=== PATIENT | female | born 1955 | race Caucasian/White ===

== ENCOUNTER 2017-06-19 17:08 | Observation (INO) | payer BC, OTHER ==
[~2017-06-19] VITALS: Ht 172.7 cm; Wt 63.7 kg
[~2017-06-19 17:08] MED LIST: CYCL5TAB PO; DIAZ2 PO; ESTR1.25 PO; FLUO-1 PO; [UNRECOGNIZED DRUG - OTHER]
[2017-06-19 17:10] VITALS: BP 143/96; PULSE 118; RESP 16; TEMP 99.1; O2SAT 96
[2017-06-19] MEDS ORDERED: LISI-515 PO (17:42)
[2017-06-19] MEDS ORDERED: MAXA10TA2 (17:42)
[2017-06-19] MEDS ORDERED: FLUO-1 PO (17:42)
[2017-06-19] MEDS ORDERED: DIAZ5 PO (17:42)
[2017-06-19] MEDS ORDERED: PROC2.5C RECTAL (17:42)
[2017-06-19] MEDS ORDERED: AMLO5TAB2 PO (17:45)
--- NOTE | 2017-06-19 18:05 | PD ---
HPI Chief Complaint: Respiratory Symptoms Time Seen by Provider: 17:38 Travel History International Travel<30 days: No Contact w/Intl Traveler<30days: No Traveled to known affect area: No History of Present Illness HPI 61yo F with PMH of breast CA s/p chemo last 05/22/17 was sent her from urgent care because CXR showed small pleural effusion. Pt has been feeling intermittent sob for 2 weeks as well as increased coughing. Said sob occurs when she walks and she has wheezing in the morning. Oncologist is from [place] and said her breast cancer has dissipated and she is done with chemo and getting ready for radiation therapy. Denies any fever, chest pain, vomiting, abdominal pain, focal weakness. PFSH Past Medical History Anxiety: Yes Cancer: Yes (MELANOMA Breast) Cardiovascular Problems: Yes (htn on meds) Chemotherapy: Yes (3 weeks ago) Diminished Hearing: No Herniated Disk: Yes (IN NECK) Hypertension: Yes Implanted Vascular Access Dvce: Yes Migraines: Yes Tetanus Vaccination: Unknown Influenza Vaccination: No ?: Not Menopausal: Yes Dilation and Curettage (D&C): Yes Past Surgical History Genitourinary Surgery: Yes (UTERINE FIBROID EMBOLIZATION) Gynecologic Surgery: Yes (UTERINE EMBOLIZATION, endometriosis) Other Surgery: Yes (BREAST AUGMENTATION) Social History Alcohol Use: Yes (ONCE A WEEK) Tobacco Use: No Substance Use: No Allergies-Medications (Allergen,Severity, Reaction): Coded Allergies: naproxen (Unverified Adverse Reaction, Intermediate, NAUSEA, 06/19/17) Reported Meds & Prescriptions Reported Meds & Active Scripts Active Reported Amlodipine (Amlodipine Besylate) 5 Mg Tab 5 Mg PO DAILY Prozac (Fluoxetine HCl) 10 Mg Cap 10 Mg PO DAILY Valium (Diazepam) 5 Mg Tab 5 Mg PO TID PRN Proctosol Hc 2.5% (Hydrocortisone Rectal 2.5%) 2.5% Cream 1 Applic RECTAL Q4H PRN Maxalt (Rizatriptan Benzoate) 10 Mg Tab Lisinopril 20 Mg Tab 20 Mg PO DAILY Review of Systems Except as stated in HPI: all other systems reviewed are Neg Physical Exam Narrative GENERAL: 61yo F in mild distress. SKIN: Focused skin assessment warm/dry. HEAD: Atraumatic. Normocephalic. EYES: Pupils equal and round. No scleral icterus. No injection or drainage. ENT: No nasal bleeding or discharge. Mucous membranes pink and moist. NECK: Trachea midline. No JVD. CARDIOVASCULAR: Tachycardic at 111bpm. No murmur appreciated. RESPIRATORY: No accessory muscle use. Decreased breath sounds with crackles in bilateral lower lungs. No wheezing. GASTROINTESTINAL: Abdomen soft, non-tender, nondistended. MUSCULOSKELETAL: No obvious deformities. No clubbing. No cyanosis. Trace bilateral lower extremity edema. NEUROLOGICAL: Awake and alert. No obvious cranial nerve deficits. Motor grossly within normal limits. Normal speech. PSYCHIATRIC: Appropriate mood and affect; insight and judgment normal. Data Data Last Documented VS Vital Signs Date Time Temp Pulse Resp B/P (MAP) Pulse Ox O2 Delivery O2 Flow Rate FiO2 06/19/17 20:50 Nasal Cannula 3.00 06/19/17 19:38 98.3 107 24 137/96 (110) 94 Orders Orders Complete Blood Count With Diff (06/19/17 17:48) Basic Metabolic Panel (Bmp) (06/19/17 17:48) B-Type Natriuretic Peptide (06/19/17 17:48) Act Partial Throm Time (Ptt) (06/19/17 17:48) Prothrombin Time / Inr (Pt) (06/19/17 17:48) Troponin I (06/19/17 17:48) Influenzae A/B Antigen (06/19/17 17:48) Electrocardiogram (06/19/17 17:48) Chest, Single Ap (06/19/17 17:48) Sodium Chlor 0.9% 1000 Ml Inj (Ns 1000 M (06/19/17 18:45) Ct Pulmonary Angiogram (06/19/17 ) Blood Culture (06/19/17 19:35) Lactic Acid Sepsis Protocol (06/19/17 19:35) Furosemide Inj (Lasix Inj) (06/19/17 20:45) Place In Observation (06/19/17 ) Vital Signs (Adult) Q4H (06/19/17 20:51) Diet Heart Healthy (06/20/17 Breakfast) Sodium Chloride 0.9% Flush (Ns Flush) (06/19/17 21:00) Sodium Chloride 0.9% Flush (Ns Flush) (06/19/17 21:00) Acetaminophen (Tylenol) (06/19/17 21:00) Ondansetron Inj (Zofran Inj) (06/19/17 21:00) Basic Metabolic Panel (Bmp) (06/20/17 06:00) Complete Blood Count With Diff (06/20/17 06:00) Heparin Inj (Heparin Inj) (06/19/17 21:00) Naloxone Inj (Narcan Inj) (06/19/17 21:00) Docusate Sodium-Senna (Christina-Colace) (06/19/17 21:00) Magnesium Hydroxide Liq (Milk Of Magnesi (06/19/17 21:00) Sennosides (Senokot) (06/19/17 21:00) Bisacodyl Supp (Dulcolax Supp) (06/19/17 21:00) Lactulose Liq (Lactulose Liq) (06/19/17 21:00) Furosemide Inj (Lasix Inj) (06/20/17 09:00) Iohexol 350 Inj (Omnipaque 350 Inj) (06/19/17 20:00) Admit Order (Ed Use Only) (06/19/17 20:56) Labs Laboratory Tests Test 06/19/17 18:17 06/19/17 19:55 White Blood Count 6.4 TH/MM3 Red Blood Count 3.68 MIL/MM3 Hemoglobin 11.7 GM/DL Hematocrit 36.5 % Mean Corpuscular Volume 99.2 FL Mean Corpuscular Hemoglobin 31.9 PG Mean Corpuscular Hemoglobin Concent 32.1 % Red Cell Distribution Width 15.8 % Platelet Count 318 TH/MM3 Mean Platelet Volume 7.7 FL Neutrophils (%) (Auto) 76.9 % Lymphocytes (%) (Auto) 13.9 % Monocytes (%) (Auto) 8.5 % Eosinophils (%) (Auto) 0.4 % Basophils (%) (Auto) 0.3 % Neutrophils # (Auto) 5.0 TH/MM3 Lymphocytes # (Auto) 0.9 TH/MM3 Monocytes # (Auto) 0.5 TH/MM3 Eosinophils # (Auto) 0.0 TH/MM3 Basophils # (Auto) 0.0 TH/MM3 CBC Comment DIFF FINAL Differential Comment Prothrombin Time 10.8 SEC Prothromb Time International Ratio 1.1 RATIO Activated Partial Thromboplast Time 23.6 SEC Blood Urea Nitrogen 16 MG/DL Creatinine 0.73 MG/DL Random Glucose 111 MG/DL Calcium Level 8.9 MG/DL Sodium Level 141 MEQ/L Potassium Level 4.5 MEQ/L Chloride Level 110 MEQ/L Carbon Dioxide Level 25.1 MEQ/L Anion Gap 6 MEQ/L Estimat Glomerular Filtration Rate 81 ML/MIN Troponin I 0.06 NG/ML B-Type Natriuretic Peptide 773 PG/ML Lactic Acid Level 2.0 mmol/L MDM Medical Decision Making Medical Screen Exam Complete: Yes Emergency Medical Condition: Yes Interpretation(s) EKG: Sinus tachycardia at 111bpm. LAD. LBBB, pt said is not new. Differential Diagnosis Pleural effusion vs. CHF vs. pneumonia vs. PE Narrative Course 61yo F was sent here by urgent care because of pleural effusion seen on CXR today. Pt said she has been not drinking much such the chemo. Pt is tachycardic and appears dehydrated so did start liter of NS IVF. Labs reviewed , no leukocytosis. BNP elevated at 773. Troponin mildly elevated at 0.06. Influenza negative. CXR showed bibasilar densities and probable small pleural effusions. Cardiomegaly with increased pulmonary vascularity. Pt reevaluated at bedside and said she does feel 20% better after the fluid but because of signs of pulmonary congestion, decided to stop the IVF after about 900cc of IVF. Pt is tachycardic, SOB and has breast CA so will do CT angio to r/o PE. CT angio showed small to moderate right and small left pleural effusion. Bibasilar consolidation likely atelectasis. Cardiomegaly with slight interstitial prominence likely CHF. Pt return from CT and was hypoxic at 87-89 % on RA so placed on 2 L NC and O2 sat improved to low to mid 90s. 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 Does not have oxygen at home. Lactic acid is normal. Do not feel this is pneumonia. Feel that this is likely new onset CHF , pt given lasix 40mg IV. Discussed with Dr. Garay and accepted to her service. Diagnosis Primary Impression: CHF (congestive heart failure) Qualified Codes: I50.9 - Heart failure, unspecified Admitting Information Admitting Physician Requests: Admit PabloSara DO Jun 19, 2017 18:05
--- NOTE | 2017-06-19 18:12 | RADRPT ---
EXAM DATE/TIME: 06/19/2017 17:56 [facility] COMPARISON: No previous studies available for comparison. INDICATIONS : Intermittent shortness of breat, wheezing x 2 weeks. MEDICAL HISTORY : Hypertension. Carcinoma, breast. Chemotherapy. SURGICAL HISTORY : Infusaport. ENCOUNTER: Initial ACUITY: 2 weeks PAIN SCORE: 0/10 LOCATION: chest FINDINGS: A single view of the chest demonstrates bibasilar densities and probable small pleural effusions. Car diomegaly with increased pulmonary vascularity. Left-sided port with tip in the SVC. Osseous structu res are intact. CONCLUSION: 1. Bibasilar densities and probable small pleural effusions. 2. Cardiomegaly with increased pulmonary vascularity. Camilo Noriega MD on June 19, 2017 at 18:10 Board Certified Radiologist. This report was verified electronically.
[2017-06-19 18:37] LABS: BASOPHIL % 0.3 % (0.0-2.0); EOSINOPHIL % 0.4 % (0.0-4.0); HEMATOCRIT 36.5 % (35.0-46.0); HEMOGLOBIN 11.7 GM/DL (11.6-15.3); LYMPH % 13.9 % (9.0-44.0); LYMPHOCYTE # 0.9 TH/MM3 (1.0-4.8); MEAN CELL VOLUME 99.2 FL (80.0-100.0); MEAN CORPUSCULAR HEMOGLOBIN 31.9 PG (27.0-34.0); MEAN CORPUSCULAR HGB CONC 32.1 % (32.0-36.0); MEAN PLATELET VOLUME 7.7 FL (7.0-11.0); MONO % 8.5 % (0.0-8.0); MONOCYTE # 0.5 TH/MM3 (0-0.9); NEUT % 76.9 % (16.0-70.0); PLATELET COUNT 318 TH/MM3 (150-450); RED BLOOD COUNT 3.68 MIL/MM3 (4.00-5.30); RED CELL DISTRIBUTION WIDTH 15.8 % (11.6-17.2); WHITE BLOOD COUNT 6.4 TH/MM3 (4.0-11.0)
[2017-06-19 18:40] VITALS: BP 134/89; PULSE 107; RESP 16; O2SAT 95
[2017-06-19] MEDS ORDERED: SODIUM CHLOR 0.9% 1000 ML INJ 1,000 ML IV ONE (18:45)
[2017-06-19 18:50] LABS: INTERNATIONAL NORMALIZED RATIO 1.1 RATIO; PROTHROMBIN TIME - PATIENT 10.8 SEC (9.8-11.6)
[2017-06-19 18:57] LABS: CALCIUM 8.9 MG/DL (8.5-10.1)
[2017-06-19 18:58] LABS: BICARBONATE 25.1 MEQ/L (21.0-32.0)
[2017-06-19 19:01] LABS: CREATININE 0.73 MG/DL (0.50-1.00)
[2017-06-19 19:05] LABS: TROPONIN I 0.06 NG/ML (0.02-0.05)
[2017-06-19 19:38] VITALS: BP 137/96; PULSE 107; RESP 24; TEMP 98.3; O2SAT 94
[2017-06-19] MEDS ORDERED: IOHEXOL 350 MG/ML 10 ML VIAL (for RAD DIAG) IVCONTRAST ONE (20:00)
--- NOTE | 2017-06-19 20:06 | RADRPT ---
EXAM DATE/TIME: 06/19/2017 19:40 [facility] COMPARISON: No previous studies available for comparison. INDICATIONS : Tachycardic and short of breath. IV CONTRAST: 75 cc Omnipaque 350 (iohexol) IV RADIATION DOSE: 8.01 CTDIvol (mGy) MEDICAL HISTORY : Hypertension. Carcinoma, breast. SURGICAL HISTORY : None. ENCOUNTER: Initial ACUITY: 1 day PAIN SCALE: 0/10 LOCATION: chest TECHNIQUE: Volumetric scanning of the chest was performed using a pulmonary embolism protocol MIP images were re constructed. Using automated exposure control and adjustment of the mA and/or kV according to patien t size, radiation dose was kept as low as reasonably achievable to obtain optimal diagnostic quality images. DICOM format image data is available electronically for review and comparison. Follow-up recommendations for detected pulmonary nodules are based at a minimum on nodule size and pa tient risk factors according to Fleischner Society Guidelines. FINDINGS: PULMONARY ARTERIES: No filling defects are seen in the pulmonary arteries through the segmental level. LUNGS: There is no consolidation or pneumothorax . Few scattered pulmonary nodules including one in the left lower lobe laterally measuring 6 mm. One is seen within the left upper lobe centrally measuring 9 mm . One is seen in the right upper lobe measuring 7 mm. Several other scattered subcentimeter nodules. PLEURAE: There is small to moderate right and small left pleural effusion. Thickening of the fissures MEDIASTINUM: There is good visualization of the great vessels of the middle mediastinum. No evidence of mediastin al or hilar adenopathy/mass. Cardiomegaly. MUSCULOSKELETAL: Within normal limits for patient age. MISCELLANEOUS: The visualized upper abdominal organs demonstrate hepatic low densities. CONCLUSION: 1. Scattered subcentimeter pulmonary nodules largest in left upper lobe measuring 9 mm. These are non specific. Followup CT chest in 3 months recommended for stability. 2. Small to moderate right and small left pleural effusion. 3. Bibasilar consolidation likely atelectasis. 4. Several hepatic low densities likely benign. 5. Cardiomegaly with slight interstitial prominence likely CHF. Camilo Noriega MD on June 19, 2017 at 20:01 Board Certified Radiologist. This report was verified electronically.
[2017-06-19] MEDS ORDERED: FUROSEMIDE 40 MG/4 ML VIAL IV PUSH ONE (20:45)
[2017-06-19] MEDS ORDERED: SENNOSIDES 8.6 MG TAB PO PRN (21:00)
[2017-06-19] MEDS ORDERED: BISACODYL 10 MG SUPP RECTAL PRN (21:00)
[2017-06-19] MEDS ORDERED: LACTULOSE SYRUP 20 GM/30 ML CUP PO PRN (21:00)
[2017-06-19] MEDS ORDERED: ACETAMINOPHEN 325 MG TAB PO PRN (21:00)
[2017-06-19] MEDS ORDERED: NALOXONE HCL 0.4 MG/ML AMP IV PUSH PRN (21:00)
[2017-06-19] MEDS ORDERED: SODIUM CHLORIDE 0.9% FLUSH 10 ML FLUSH IV FLUSH PRN (21:00)
[2017-06-19] MEDS ORDERED: MAGNESIUM HYDROXIDE SUSP 30 ML CUP PO PRN (21:00)
[2017-06-19] MEDS: DOCUSATE SODIUM 50 MG/SENNA 8.6 MG TAB PO SCH (21:09)
[2017-06-19] MEDS: HEPARIN SODIUM - SQ 10,000 UNITS/ML VIAL SQ SCH (21:10)
[2017-06-19] MEDS: SODIUM CHLORIDE 0.9% FLUSH 10 ML FLUSH IV FLUSH SCH (21:11)
[2017-06-19 21:28] VITALS: BP 126/88; PULSE 101; RESP 22; O2SAT 97
[2017-06-19 22:00] VITALS: BP 120/81; PULSE 91; RESP 16; TEMP 99; O2SAT 96
[2017-06-19] MEDS ORDERED: LORazepam 0.5 MG TAB PO ONE (22:30)
[2017-06-19 22:45] VITALS: PULSE 100
[2017-06-19] MEDS: ONDANSETRON HCL 4 MG/2 ML VIAL IVP PRN (23:21)
[2017-06-19] MEDS: ACETAMINOPHEN/HYDROcodone 325 MG/5 MG TAB PO PRN ×2 (23:22→23:23)
[2017-06-20 06:23] LABS: AUTOMATED NEUTROPHIL # 2.4 TH/MM3 (1.8-7.7); BASOPHIL % 0.7 % (0.0-2.0); EOSINOPHIL # 0.1 TH/MM3 (0-0.4); EOSINOPHIL % 1.8 % (0.0-4.0); HEMATOCRIT 34.2 % (35.0-46.0); LYMPH % 23.9 % (9.0-44.0); LYMPHOCYTE # 0.9 TH/MM3 (1.0-4.8); MEAN CELL VOLUME 99.4 FL (80.0-100.0); MEAN CORPUSCULAR HEMOGLOBIN 31.9 PG (27.0-34.0); MEAN CORPUSCULAR HGB CONC 32.1 % (32.0-36.0); MEAN PLATELET VOLUME 7.7 FL (7.0-11.0); MONO % 12.8 % (0.0-8.0); MONOCYTE # 0.5 TH/MM3 (0-0.9); NEUT % 60.8 % (16.0-70.0); PLATELET COUNT 296 TH/MM3 (150-450); RED BLOOD COUNT 3.44 MIL/MM3 (4.00-5.30); RED CELL DISTRIBUTION WIDTH 15.8 % (11.6-17.2); WHITE BLOOD COUNT 3.9 TH/MM3 (4.0-11.0)
[2017-06-20 07:10] LABS: BICARBONATE 26.7 MEQ/L (21.0-32.0); CALCIUM 8.4 MG/DL (8.5-10.1); CREATININE 0.67 MG/DL (0.50-1.00)
[2017-06-20 08:00] VITALS: BP 105/66; PULSE 89; PULSE 93; RESP 18; TEMP 97.1; O2SAT 95
[2017-06-20] MEDS ORDERED: FUROSEMIDE 20 MG/2 ML VIAL IV PUSH SCH (09:00)
[2017-06-20] MEDS: HEPARIN SODIUM - SQ 10,000 UNITS/ML VIAL SQ SCH ×3 (10:39→23:09)
[2017-06-20] MEDS: DOCUSATE SODIUM 50 MG/SENNA 8.6 MG TAB PO SCH ×2 (10:39→21:43)
[2017-06-20] MEDS: SODIUM CHLORIDE 0.9% FLUSH 10 ML FLUSH IV FLUSH SCH ×2 (10:41→19:58)
--- NOTE | 2017-06-20 11:58 | HHI.HP ---
[facility] Primary Care Physician Tanya Domingo D.O. Admission Diagnosis CHF Diagnoses: Chief Complaint: Shortness of breath Travel History International Travel<30 Days: No Contact w/Intl Traveler <30 Da: No Traveled to Known Affected Are: No History of Present Illness This patient is a 61-year-old female just completed a course of Adriamycin, cyclophosphamide and Taxol for breast cancer. She now presents with increased shortness of breath and work of breathing for the last 2 weeks with worsening over the last 24 hours. She saw several practitioners who thought she sounded clear however she began getting worsening short of breath and came to the emergency room for further evaluation. She is found to be hypoxemic with x- rays consistent with vascular congestion and pleural effusion right greater than left on my review. Patient also has a history of left bundle branch block in the past. She also has hypertension for which she has been taking amlodipine as well as lisinopril. She sees Dr. Lewis for cardiology as needed and reports having a normal cardiac evaluation before starting her Adriamycin based chemotherapy. At this time patient has improved after diuresis with Lasix. She is put 2.8 L of clear urine out. On telemetry there are no events or arrhythmias. Patient appears more comfortable although still somewhat hypoxemic. She had been as low as 88% in the emergency room. Patient been admitted to the hospital for further evaluation of acute congestive heart failure. Review of Systems Constitutional: DENIES: Diaphoretic episodes, Fatigue, Fever, Weight gain, Weight loss, Chills, Dizziness, Change in appetite, Night Sweats Endocrine: DENIES: Abnorml menstrual pattern, Heat/cold intolerance, Polydipsia , Polyuria, Polyphagia Eyes: DENIES: Blurred vision, Diplopia, Eye inflammation, Eye pain, Vision loss , Photosensitivity, Double Vision Ears, nose, mouth, throat: DENIES: Tinnitus, Hearing loss, Vertigo, Nasal discharge, Oral lesions, Throat pain, Hoarseness, Ear Pain, Running Nose, Epistaxis, Sinus Pain, Toothache, Odynophagia Respiratory: COMPLAINS OF: Shortness of breath, DENIES: Apneas, Cough, Snoring , Wheezing, Hemoptysis, Sputum production Cardiovascular: COMPLAINS OF: Dyspnea on Exertion, Orthopnea, DENIES: Chest pain, Palpitations, Syncope, PND, Lower Extremity Edema, Claudication Genitourinary: DENIES: Abnormal vaginal bleeding, Dysmenorrhea, Dyspareunia, Sexual dysfunction, Urinary frequency, Urinary incontinence, Urgency, Hematuria , Dysuria, Nocturia, Vaginal discharge Musculoskeletal: DENIES: Joint pain, Muscle aches, Stiffness, Joint Swelling, Back pain, Neck pain Integumentary: DENIES: Abnormal pigmentation, Pruritus, Rash, Nail changes, Breast masses, Breast skin changes, Nipple discharge Hematologic/lymphatic: DENIES: Bruising, Lymphadenopathy Immunologic/allergic: DENIES: Eczema, Urticaria Neurologic: DENIES: Abnormal gait, Headache, Localized weakness, Paresthesias, Seizures, Speech Problems, Tremor, Poor Balance Psychiatric: DENIES: Anxiety, Confusion, Mood changes, Depression, Hallucinations, Agitation, Suicidal Ideation, Homicidal Ideation, Delusions Except as stated in HPI: all other systems reviewed are Neg Past Family Social History Past Medical History Breast cancer status post chemotherapy Left bundle branch block Depression and anxiety Hypertension Past Surgical History Breast augmentation Uterine fibroid treatment Reported Medications Reviewed in the EMR Allergies: Coded Allergies: naproxen (Unverified Adverse Reaction, Intermediate, NAUSEA, 06/19/17) Active Ordered Medications reviewed in the EMR Family History mom had breast cancer gm had heart failure Social History No current tobacco alcohol, 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 Physical Exam Vital Signs Vital Signs Date Time Temp Pulse Resp B/P (MAP) Pulse Ox O2 Delivery O2 Flow Rate FiO2 06/20/17 08:00 Nasal Cannula 2.00 06/20/17 08:00 97.1 89 18 105/66 (79) 95 06/20/17 08:00 93 06/20/17 03:33 Nasal Cannula 2.00 06/20/17 00:00 94 Nasal Cannula 2.00 06/19/17 22:45 100 06/19/17 22:00 99.0 91 16 120/81 (94) 96 06/19/17 21:50 06/19/17 21:28 101 22 126/88 (101) 97 Nasal Cannula 3.00 06/19/17 20:50 Nasal Cannula 3.00 06/19/17 19:53 Nasal Cannula 2.00 06/19/17 19:38 98.3 107 24 137/96 (110) 94 Room Air 06/19/17 18:40 107 16 134/89 (104) 95 06/19/17 17:10 99.1 118 16 143/96 (112) 96 Physical Exam GENERAL: This is a well-nourished, well-developed patient, in no apparent distress. SKIN: No rashes, ecchymoses or lesions. Cool and dry. HEAD: Atraumatic. Normocephalic. No temporal or scalp tenderness. EYES: Pupils equal round and reactive. Extraocular motions intact. No scleral icterus. No injection or drainage. ENT: Nose without bleeding, purulent drainage or septal hematoma. Throat without erythema, tonsillar hypertrophy or exudate. Uvula midline. Airway patent. NECK: Trachea midline. No JVD or lymphadenopathy. Supple, nontender, no meningeal signs. CARDIOVASCULAR: Regular rate and rhythm without murmurs, gallops, or rubs. RESPIRATORY: Fine crackles bilaterally and decreased breath sounds right greater than left base GASTROINTESTINAL: Abdomen soft, non-tender, nondistended. No hepato-splenomegaly , or palpable masses. No guarding. MUSCULOSKELETAL: Extremities without clubbing, cyanosis, or edema. No joint tenderness, effusion, or edema noted. No calf tenderness. Negative Homans sign bilaterally. NEUROLOGICAL: Awake and alert. Cranial nerves II through XII intact. Motor and sensory grossly within normal limits. Five out of 5 muscle strength in all muscle groups. Normal speech. Laboratory Laboratory Tests Test 06/19/17 18:17 06/19/17 19:55 06/20/17 05:43 White Blood Count 6.4 3.9 Red Blood Count 3.68 3.44 Hemoglobin 11.7 11.0 Hematocrit 36.5 34.2 Mean Corpuscular Volume 99.2 99.4 Mean Corpuscular Hemoglobin 31.9 31.9 Mean Corpuscular Hemoglobin Concent 32.1 32.1 Red Cell Distribution Width 15.8 15.8 Platelet Count 318 296 Mean Platelet Volume 7.7 7.7 Neutrophils (%) (Auto) 76.9 60.8 Lymphocytes (%) (Auto) 13.9 23.9 Monocytes (%) (Auto) 8.5 12.8 Eosinophils (%) (Auto) 0.4 1.8 Basophils (%) (Auto) 0.3 0.7 Neutrophils # (Auto) 5.0 2.4 Lymphocytes # (Auto) 0.9 0.9 Monocytes # (Auto) 0.5 0.5 Eosinophils # (Auto) 0.0 0.1 Basophils # (Auto) 0.0 0.0 CBC Comment DIFF FINAL DIFF FINAL Differential Comment Prothrombin Time 10.8 Prothromb Time International Ratio 1.1 Activated Partial Thromboplast Time 23.6 Blood Urea Nitrogen 16 15 Creatinine 0.73 0.67 Random Glucose 111 88 Calcium Level 8.9 8.4 Sodium Level 141 147 Potassium Level 4.5 3.6 Chloride Level 110 112 Carbon Dioxide Level 25.1 26.7 Anion Gap 6 8 Estimat Glomerular Filtration Rate 81 89 Troponin I 0.06 B-Type Natriuretic Peptide 773 Lactic Acid Level 2.0 Date/Time Source Procedure Growth Status 06/19/17 20:00 Blood Peripheral Aerobic Blood Culture - Preliminary NO GROWTH IN 1 DAY Resulted 06/19/17 20:00 Blood Peripheral Anaerobic Blood Culture - Preliminary NO GROWTH IN 1 DAY Resulted 06/19/17 18:17 Nasal Aspirate Influenza Types A,B Antigen (JEWELL) - Final NEGATIVE FOR FLU A AND B ANTIGEN.... Complete Result Diagram: 06/20/17 0543 06/20/17 0543 Imaging Last Impressions Chest X-Ray 06/19/17 1748 Signed Impressions: Service Date/Time: Monday, June 19, 2017 17:56 - CONCLUSION: 1. Bibasilar densities and probable small pleural effusions. 2. Cardiomegaly with increased pulmonary vascularity. Camilo Noriega MD CT Angiography 06/19/17 0000 Signed Impressions: Service Date/Time: Monday, June 19, 2017 19:40 - CONCLUSION: 1. Scattered subcentimeter pulmonary nodules largest in left upper lobe measuring 9 mm. These are nonspecific. Followup CT chest in 3 months recommended for stability. 2. Small to moderate right and small left pleural effusion. 3. Bibasilar consolidation likely atelectasis. 4. Several hepatic low densities likely benign. 5. Cardiomegaly with slight interstitial prominence likely CHF. Camilo Noriega MD Caprini VTE Risk Assessment Caprini VTE Risk Assessment: Mod/High Risk (score >= 2) Caprini Risk Assessment Model Point Value = 1 Point Value = 2 Point Value = 3 Point Value = 5 Age 41-60 Minor surgery BMI > 25 kg/m2 Swollen legs Varicose veins or History of unexplained or recurrent spontaneous Oral contraceptives or hormone replacement Sepsis (< 1 month) Serious lung disease, including pneumonia (< 1 month) Abnormal pulmonary function Acute myocardial infarction Congestive heart failure (< 1 month) History of inflammatory bowel disease Medical patient at bed rest Age 61-74 Arthroscopic surgery Major open surgery (> 45 min) Laparoscopic surgery (> 45 min) Malignancy Confined to bed (> 72 hours) Immobilizing plaster cast Central venous access Age >= 75 History of VTE Family history of VTE Factor V Leiden Prothrombin [id number] Lupus anticoagulant Anticardiolipin antibodies Elevated serum homocysteine Heparin-induced thrombocytopenia Other congenital or acquired thrombophilia Stroke (< 1 month) Elective arthroplasty Hip, pelvis, or leg fracture Acute spinal cord injury (< 1 month) Prophylaxis Regimen Total Risk Factor Score Risk Level Prophylaxis Regimen 0-1 Low Early ambulation 2 Moderate Order ONE of the following: *Sequential Compression Device (SCD) *Heparin 5000 units SQ BID 3-4 Higher Order ONE of the following medications: *Heparin 5000 units SQ TID *Enoxaparin/Lovenox 40 mg SQ daily (WT < 150 kg, CrCl > 30 mL/min) *Enoxaparin/Lovenox 30 mg SQ daily (WT < 150 kg, CrCl > 10-29 mL/min) *Enoxaparin/Lovenox 30 mg SQ BID (WT < 150 kg, CrCl > 30 mL/min) AND/OR *Sequential Compression Device (SCD) 5 or more Highest Order ONE of the following medications: *Heparin 5000 units SQ TID (Preferred with Epidurals) *Enoxaparin/Lovenox 40 mg SQ daily (WT < 150 kg, CrCl > 30 mL/min) *Enoxaparin/Lovenox 30 mg SQ daily (WT < 150 kg, CrCl > 10-29 mL/min) *Enoxaparin/Lovenox 30 mg SQ BID (WT < 150 kg, CrCl > 30 mL/min) AND *Sequential Compression Device (SCD) Assessment and Plan Problem List: (1) Breast CA ICD Code: C50.919 - Malignant neoplasm of unspecified site of unspecified female breast Plan: Status post treatment at [facility] with Adriamycin, cyclophosphamide and Taxol Completed her therapy last month (2) CHF (congestive heart failure) ICD Code: I50.9 - Heart failure, unspecified Status: Acute Plan: DC amlodipine as it can cause some edema Workup in progress with echocardiogram Continue with Lasix and LOBO inhibitor Problem Qualifiers (1) CHF (congestive heart failure): Qualified Codes: I50.9 - Heart failure, unspecified Odessa Cummings MD Jun 20, 2017 11:58
[2017-06-20 12:00] VITALS: BP 105/65; PULSE 96; RESP 18; TEMP 97.8; O2SAT 94
--- NOTE | 2017-06-20 13:31 | RADRPT ---
EXAM DATE/TIME: 06/20/2017 12:44 [facility] COMPARISON: No previous studies available for comparison. INDICATIONS : Pleural effusion, short of breath. MEDICAL HISTORY : Hypertension. Carcinoma, breast. Chemotherapy. SURGICAL HISTORY : Infusaport. ENCOUNTER: Subsequent ACUITY: 2 weeks PAIN SCORE: 0/10 LOCATION: chest FINDINGS: [id number] in good position. Lungs are aerated with mild interstitial prominence. Small bilatera l pleural effusions evident. The portion of the bony skeleton visualized is unremarkable. CONCLUSION: Mild failure with small bilateral pleural effusions.. Sam Cao MD FACR on June 20, 2017 at 13:28 Board Certified Radiologist. This report was verified electronically.
[2017-06-20] MEDS: ALPRAZolam 0.5 MG TAB PO PRN ×2 (13:56→23:09)
[2017-06-20 16:00] VITALS: BP 104/62; PULSE 88; RESP 18; TEMP 97.8; O2SAT 94
[2017-06-20] MEDS: ONDANSETRON HCL 4 MG/2 ML VIAL IVP PRN (19:58)
[2017-06-20 20:00] VITALS: BP 107/67; PULSE 97; RESP 20; TEMP 96.5; O2SAT 95
[2017-06-20 20:30] VITALS: PULSE 91
--- NOTE | 2017-06-20 22:49 | EKG ---
Date Performed: 06/19/2017 Time Performed: 17:58:39 PTAGE: 61 years EKG: SINUS TACHYCARDIA LEFT BUNDLE BRANCH BLOCK ABNORMAL ECG NO PREVIOUS TRACING DOCTOR: Ceci Orona Interpretating Date/Time 06/20/2017 22:47:39
[2017-06-21] VITALS: BP 93/57; PULSE 70; RESP 20; TEMP 96.3; O2SAT 93
[2017-06-21 04:00] VITALS: BP 99/63; PULSE 79; RESP 20; TEMP 96.4; O2SAT 94
[2017-06-21 05:32] LABS: CALCIUM 8.6 MG/DL (8.5-10.1)
[2017-06-21 05:33] LABS: BICARBONATE 27.8 MEQ/L (21.0-32.0)
[2017-06-21 05:36] LABS: CREATININE 0.62 MG/DL (0.50-1.00)
[2017-06-21 08:00] VITALS: BP 102/71; PULSE 88; RESP 16; TEMP 94; TEMP 97; O2SAT 96
[2017-06-21] MEDS: DOCUSATE SODIUM 50 MG/SENNA 8.6 MG TAB PO SCH ×2 (08:16→21:00)
[2017-06-21] MEDS: HEPARIN SODIUM - SQ 10,000 UNITS/ML VIAL SQ SCH ×3 (08:20→21:48)
[2017-06-21] MEDS: SODIUM CHLORIDE 0.9% FLUSH 10 ML FLUSH IV FLUSH SCH ×2 (08:22→21:44)
[2017-06-21] MEDS ORDERED: FLUoxetine HCL 10 MG CAP PO SCH (09:00)
[2017-06-21] MEDS ORDERED: FUROSEMIDE 20 MG/2 ML VIAL IV PUSH SCH (09:00)
[2017-06-21] MEDS ORDERED: LISINOPRIL 20 MG TAB PO SCH (09:00)
[2017-06-21] MEDS ORDERED: POTASSIUM CHLORIDE 10 MEQ CONTROLLED RELEASE TAB PO ONE (09:30)
[2017-06-21 12:00] VITALS: BP 95/54; PULSE 93; RESP 15; TEMP 96; O2SAT 95
[2017-06-21] MEDS: ALPRAZolam 0.5 MG TAB PO PRN ×2 (14:33→22:28)
--- NOTE | 2017-06-21 15:08 | ECHRPT ---
Indication: SOB CONCLUSIONS Mildly dilated left ventricle. Wall thickness is normal. The left ventricular systolic function is severely reduced with an estimated ejection fraction in th e range of 20%. Trace mitral valve regurgitation. There is trace tricuspid valve regurgitation. The estimated pulmonary arterial pressure is 23 mmHg. BP: / HR: Rhythm: MEASUREMENTS (Male / Female) Normal Values Technical Quality: 2D ECHO LV Diastolic Diameter PLAX 4.9 cm 4.2 - 5.9 / 3.9 - 5.3 cm LV Systolic Diameter PLAX 4.5 cm IVS Diastolic Thickness 1.2 cm 0.6 - 1.0 / 0.6 - 0.9 cm LVPW Diastolic Thickness 1.0 cm 0.6 - 1.0 / 0.6 - 0.9 cm LV Relative Wall Thickness 0.4 RV Internal Dim ED PLAX 1.9 cm LA Systolic Diameter LX 3.1 cm 3.0 - 4.0 / 2.7 - 3.8 cm DOPPLER Mitral E Point Velocity 87.0 cm/s TR Peak Velocity 212.0 cm/s TR Peak Gradient 18.0 mmHg FINDINGS LEFT VENTRICLE Mildly dilated left ventricle. Wall thickness is normal. The left ventricular systolic function is severely reduced with an estimated ejection fraction in th e range of 20%. RIGHT VENTRICLE Normal right ventricular size and systolic function. LEFT ATRIUM The left atrial size is normal. RIGHT ATRIUM The right atrial size is normal. ATRIAL SEPTUM Normal atrial septal thickness without atrial level shunting by limited color doppler interrogation. AORTA The aortic root and proximal ascending aorta are normal in size on limited imaging. MITRAL VALVE Trace mitral valve regurgitation. AORTIC VALVE Trileaflet aortic valve. No aortic valve stenosis or regurgitation. TRICUSPID VALVE There is trace tricuspid valve regurgitation. The estimated pulmonary arterial pressure is 23 mmHg. PULMONARY VALVE The pulmonary valve is not well visualized. VESSELS The inferior vena cava is normal in size. PERICARDIUM No pericardial effusion. Gagandeep Doss MD, FACC, [facility] (Electronically Signed) Final Date:21 June 2017 15:06
[2017-06-21 16:00] VITALS: BP 100/80; PULSE 90; RESP 15; TEMP 96; O2SAT 96
--- NOTE | 2017-06-21 16:58 | HHI.PR ---
Subjective Remarks Patient seen and evaluated earlier today. Patient does have significant improvement and decrease hypoxemia after over 4 L diuresis. Personally her blood pressure is quite low and she cannot tolerate a beta-charles or a LOBO inhibitor at this time. Her Norvasc has been discontinued. Plan of care discussed with patient. Echocardiogram is quite significantly abnormal Objective Vitals Vital Signs Date Time Temp Pulse Resp B/P (MAP) Pulse Ox O2 Delivery O2 Flow Rate FiO2 06/21/17 12:00 96.0 93 15 95/54 (68) 95 06/21/17 08:00 97.0 88 16 102/71 (81) 96 06/21/17 04:00 96.4 79 20 99/63 (75) 94 06/21/17 00:00 96.3 70 20 93/57 (69) 93 06/20/17 20:30 91 06/20/17 20:00 96.5 97 20 107/67 (80) 95 I/O 06/20/17 06/20/17 06/20/17 06/21/17 06/21/17 06/21/17 07:00 15:00 23:00 07:00 15:00 23:00 Intake Total 60 ml 600 ml 120 ml Output Total 1400 ml 1450 ml 150 ml Balance -1340 ml -850 ml -30 ml Intake Oral 60 ml 600 ml 120 ml Output Urine Total 1400 ml 1450 ml 150 ml # Voids 1 5 2 # Bowel Movements 0 0 Result Diagram: 06/20/17 0543 06/21/17 0425 Imaging Last Impressions Chest X-Ray 06/20/17 0000 Signed Impressions: Service Date/Time: Tuesday, June 20, 2017 12:44 - CONCLUSION: Mild failure with small bilateral pleural effusions.. Sam Cao MD FACR CT Angiography 06/19/17 0000 Signed Impressions: Service Date/Time: Monday, June 19, 2017 19:40 - CONCLUSION: 1. Scattered subcentimeter pulmonary nodules largest in left upper lobe measuring 9 mm. These are nonspecific. Followup CT chest in 3 months recommended for stability. 2. Small to moderate right and small left pleural effusion. 3. Bibasilar consolidation likely atelectasis. 4. Several hepatic low densities likely benign. 5. Cardiomegaly with slight interstitial prominence likely CHF. Camilo Noriega MD Objective Remarks GENERAL: This is a well-nourished, well-developed patient, in no apparent distress. CARDIOVASCULAR: Regular rate and rhythm without murmurs, gallops, or rubs. RESPIRATORY: Clear to auscultation. Breath sounds equal bilaterally. No wheezes , rales, or rhonchi. GASTROINTESTINAL: Abdomen soft, non-tender, nondistended. Normal active bowel sounds MUSCULOSKELETAL: Extremities without clubbing, cyanosis, or edema. NEURO: Alert & Oriented x4 to person, place, time, situation. Moves all ext x4 A/P Problem List: (1) Breast CA ICD Code: C50.919 - Malignant neoplasm of unspecified site of unspecified female breast Plan: Status post treatment at [facility] with Adriamycin, cyclophosphamide and Taxol Completed her therapy last month (2) CHF (congestive heart failure) ICD Code: I50.9 - Heart failure, unspecified Status: Acute Plan: With acute exacerbation of systolic heart failure EF of 20%. Will reduce Lasix and follow up blood pressure to allow to use LOBO inhibitor and beta -charles Cardiology consult pending Discussed with patient and spouse Discharge Planning Pending progress, likely discharge in a.m. Problem Qualifiers (1) CHF (congestive heart failure): Qualified Codes: I50.9 - Heart failure, unspecified Odessa Cummings MD Jun 21, 2017 16:58
[2017-06-21 20:00] VITALS: BP 102/61; PULSE 95; RESP 20; TEMP 98.3; O2SAT 96
[2017-06-22] VITALS: BP 98/56; PULSE 86; RESP 20; TEMP 96.8; O2SAT 93
[2017-06-22 06:42] LABS: CALCIUM 8.6 MG/DL (8.5-10.1)
[2017-06-22 06:43] LABS: BICARBONATE 29.1 MEQ/L (21.0-32.0)
[2017-06-22 06:46] LABS: CREATININE 0.55 MG/DL (0.50-1.00)
[2017-06-22 08:00] VITALS: BP 182/92; PULSE 84; RESP 16; TEMP 96.1; O2SAT 95
[2017-06-22] MEDS ORDERED: POTASSIUM CHLORIDE 20 MEQ CONTROLLED RELEASE TAB PO SCH (09:00)
[2017-06-22] MEDS ORDERED: FUROSEMIDE 20 MG TAB PO SCH (09:00)
[2017-06-22] MEDS: ONDANSETRON HCL 4 MG/2 ML VIAL IVP PRN (09:22)
[2017-06-22] MEDS: DOCUSATE SODIUM 50 MG/SENNA 8.6 MG TAB PO SCH (09:23)
[2017-06-22] MEDS: HEPARIN SODIUM - SQ 10,000 UNITS/ML VIAL SQ SCH (09:23)
[2017-06-22] MEDS: SODIUM CHLORIDE 0.9% FLUSH 10 ML FLUSH IV FLUSH SCH (09:23)
--- NOTE | 2017-06-22 09:27 | MB ---
cc: Robby Lewis MD DATE: 06/22/2017 REQUESTING PHYSICIAN: [facility] hospitalist, Dr. Cummings. CONSULTING PHYSICIAN: Dr. Lewis. REASON FOR CONSULTATION: Congestive heart failure. CHIEF COMPLAINT: Shortness of breath. IMPRESSION: 1. Nonischemic dilated cardiomyopathy. 2. Breast cancer. 3. Left bundle branch block. 4. History of mixed hyperlipidemia. RECOMMENDATIONS: Loop diuretics, LOBO inhibitors or Entresto, beta blockade. I will see her in the office in 2 weeks. Low salt diet, 2 liter fluid restriction. SUBJECTIVE: Ms. Patricio is well known to me. She is a 61-year-old white female being treated for breast cancer by [facility]. She has a history of left bundle branch block when last seen by the undersigned in 08/2016 and was scheduled to be seen this coming August. She had a history of left bundle branch block with palpitations, hyperlipidemia and a normal ejection fraction on an echo. After diagnosis of breast cancer at [facility], she was seen by a scale attendant who cleared her to receive chemotherapy which she received. Subsequently a course of Adriamycin, cyclophosphamide and Taxol. About 2-1/2 weeks ago, she began having paroxysmal nocturnal dyspnea and orthopnea. I could hear gurgling at night when she laid down. She subsequently decompensated and was admitted here with acute congestive heart failure on Sunday. Ejection fraction on echocardiogram now shows an ejection fraction of 20%. The scale attendant at [facility] had scheduled her for a followup visit in 6 months after her treatment. PAST MEDICAL HISTORY: Remarkable for the above, as well as a history of depression, hypertension, migraines, anxiety, left bundle branch block. She has had a D and C, malignant melanoma of the upper thigh, breast augmentation with an implant removal, uterine artery embolization, myomectomy, hysterectomy, cervical polypectomy. MEDICATIONS: Her medicines on the last visit with us were fluoxetine, diazepam, omega 3 fish oil, Maxalt, lisinopril HCT 20/25 one tablet a day. ALLERGIES: NAPROXEN SODIUM. SOCIAL HISTORY: She never smoked, used occasional alcohol. 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 REVIEW OF SYSTEMS: GASTROINTESTINAL: No hematemesis, melena, or blood per rectum. RESPIRATORY: Shortness of breath, dyspnea on exertion as above. There was a questionable history of asthma. She was seen by Dr. Kolb in the past. ENDOCRINE: She denied endocrine symptoms. HEMATOLOGIC: No hematologic symptoms. MUSCULOSKELETAL: She had chronic pain in the pubic area and was seen by Dr. Yarely Crow in the past. NEUROLOGIC: History of migraines. PSYCHOLOGIC: History of anxiety. SKIN: See above, melanoma. PHYSICAL EXAMINATION: VITAL SIGNS: Blood pressure was 105/60, heart rate was 80. HEENT: Pupils are equal. Sclerae are clear. NECK: Veins are not distended. Carotids 2+ without bruits. CHEST: Chest wall is nontender. LUNGS: Clear to auscultation and percussion. CARDIAC: Exam reveals no murmurs or gallops. PMI is displaced to the left. ABDOMEN: Soft. EXTREMITIES: Without edema. She is right-handed, fluent speech, moves all of her extremities. NEUROLOGIC: Sensory and motor were intact. LABORATORY DATA: Reviewed, mildly anemic with a hemoglobin of 11, white count is depressed at 3.9. Potassium 3.6. BNP 773. CT angiogram was done which showed scattered pulmonary nodules, the largest being 9 mm, small to moderate right and left pleural effusions, cardiomegaly. Chest x-ray confirmed the same. The ECG shows left bundle branch block and sinus rhythm. DISCUSSION: We will be happy to follow her up more carefully here. She can continue if she wishes to see the scale attendant at [facility]. I will make sure she is discharged with medicine reconciliation and on appropriate medicines for heart failure. MD TOM GardnerH/EDUARDO , 08:42 AM , 09:25 AM
[2017-06-22] MEDS ORDERED: FURO1TAB62 PO (10:01)
[2017-06-22] MEDS ORDERED: METO25TA3 PO (10:01)
[2017-06-22] MEDS ORDERED: LOSA25TA PO (10:01)
--- NOTE | 2017-06-22 10:04 | HHI.DCPOC ---
Discharge Care Plan Diagnosis: (1) CHF (congestive heart failure) Goals to Promote Your Health * To prevent worsening of your condition and complications * To maintain your health at the optimal level Directions to Meet Your Goals Take your medications as prescribed Follow your dietary instruction Follow activity as directed Keep your appointments as scheduled Take your immunizations and boosters as scheduled If your symptoms worsen call your PCP, if no PCP go to Urgent Care Center or Emergency Room Smoking is Dangerous to Your Health. Avoid second hand smoke Call the 24-hour hour crisis hotline for domestic abuse at Odessa Cummings MD Jun 22, 2017 10:04
--- NOTE | 2017-06-22 10:14 | HHI.DS ---
Discharge Summary Admission Date Jun 19, 2017 at 20:57 Discharge Date: Jun 22, 2017 Admitting Diagnosis CHF (1) Breast CA ICD Code: C50.919 - Malignant neoplasm of unspecified site of unspecified female breast (2) CHF (congestive heart failure) ICD Code: I50.9 - Heart failure, unspecified Status: Acute Procedures Echocardiogram (EF 20%) Brief History - From Admission This patient is a 61-year-old female just completed a course of Adriamycin, cyclophosphamide and Taxol for breast cancer. She now presents with increased shortness of breath and work of breathing for the last 2 weeks with worsening over the last 24 hours. She saw several practitioners who thought she sounded clear however she began getting worsening short of breath and came to the emergency room for further evaluation. She is found to be hypoxemic with x- rays consistent with vascular congestion and pleural effusion right greater than left on my review. Patient also has a history of left bundle branch block in the past. She also has hypertension for which she has been taking amlodipine as well as lisinopril. She sees Dr. Lewis for cardiology as needed and reports having a normal cardiac evaluation before starting her Adriamycin based chemotherapy. At this time patient has improved after diuresis with Lasix. She is put 2.8 L of clear urine out. On telemetry there are no events or arrhythmias. Patient appears more comfortable although still somewhat hypoxemic. She had been as low as 88% in the emergency room. Patient been admitted to the hospital for further evaluation of acute congestive heart failure. CBC/BMP: 06/20/17 0543 06/22/17 0600 Significant Findings Laboratory Tests Test 06/19/17 18:17 06/19/17 19:55 06/20/17 05:43 06/21/17 04:25 Red Blood Count 3.68 MIL/MM3 (4.00-5.30) 3.44 MIL/MM3 (4.00-5.30) Neutrophils (%) (Auto) 76.9 % (16.0-70.0) Monocytes (%) (Auto) 8.5 % (0.0-8.0) 12.8 % (0.0-8.0) Lymphocytes # (Auto) 0.9 TH/MM3 (1.0-4.8) 0.9 TH/MM3 (1.0-4.8) Activated Partial Thromboplast Time 23.6 SEC (24.3-30.1) Random Glucose 111 MG/DL (74-106) Chloride Level 110 MEQ/L (98-107) 112 MEQ/L (98-107) 109 MEQ/L (98-107) Estimat Glomerular Filtration Rate 81 ML/MIN (>89) Troponin I 0.06 NG/ML (0.02-0.05) B-Type Natriuretic Peptide 773 PG/ML (0-100) White Blood Count 3.9 TH/MM3 (4.0-11.0) Hemoglobin 11.0 GM/DL (11.6-15.3) Hematocrit 34.2 % (35.0-46.0) Calcium Level 8.4 MG/DL (8.5-10.1) Sodium Level 147 MEQ/L (136-145) Potassium Level 3.4 MEQ/L (3.5-5.1) Test 06/22/17 06:00 Chloride Level 111 MEQ/L (98-107) Anion Gap 4 MEQ/L (5-15) PE at Discharge GENERAL: This is a well-nourished, well-developed patient, in no apparent distress. CARDIOVASCULAR: Regular rate and rhythm without murmurs, gallops, or rubs. RESPIRATORY: Clear to auscultation. Breath sounds equal bilaterally. No wheezes , rales, or rhonchi. GASTROINTESTINAL: Abdomen soft, non-tender, nondistended. Normal active bowel sounds MUSCULOSKELETAL: Extremities without clubbing, cyanosis, or edema. NEURO: Alert & Oriented x4 to person, place, time, situation. Moves all ext x4 Pt update on day of discharge Patient seen today in follow-up for discharge planning. Care plan discussed with cardiology Discharge plan discussed with patient Hospital Course This patient is a 61-year-old female with a history of breast cancer who was on TAC and recently completed her chemotherapy. Patient's got a history of LBBB without any other cardiac disease. She apparently has developed congestive heart failure quite severely postchemotherapy. Her EF is in the 20%. She has done well with diuresis of over 5 L. Her lites lites have remained stable with some potassium replacement. Patient did have some hypotension and her medications which were previously prescribed for hypertension were adjusted. She was seen by cardiology. Pt Condition on Discharge: Good Discharge Disposition: Discharge Home Discharge Time: <= 30 minutes Discharge Instructions DIET: Follow Instructions for: Heart Healthy Diet Activities you can perform: Regular-No Restrictions Follow up Referrals: Cardiology - 1 Week with Robby Lewis MD New Medications: Furosemide (Lasix) 20 Mg Tab 20 MG PO DAILY for hf, #30 TAB 0 Refills Losartan (Losartan) 25 Mg Tab 12.5 MG PO DAILY for Blood Pressure Management, #30 TAB 0 Refills Metoprolol Tartrate (Metoprolol Tartrate) 25 Mg Tab 12.5 MG PO BID for hf, #30 TAB 0 Refills Continued Medications: Diazepam (Valium) 5 Mg Tab 5 MG PO TID PRN for ANXIETY, TAB 0 Refills Fluoxetine (Prozac) 10 Mg Cap 10 MG PO DAILY, #30 CAP 0 Refills Hydrocortisone Rectal 2.5% (Proctosol Hc 2.5%) 2.5% Cream 1 APPLIC RECTAL Q4H PRN for PAIN/INFLAMMATION, #1 TUBE 0 Refills Rizatriptan (Maxalt) 10 Mg Tab Discontinued Medications: Amlodipine (Amlodipine) 5 Mg Tab 5 MG PO DAILY for Blood Pressure Management, #30 TAB 0 Refills Lisinopril (Lisinopril) 20 Mg Tab 20 MG PO DAILY, #30 TAB 0 Refills Odessa Cummings MD Jun 22, 2017 10:14
[2017-06-22] MEDS ORDERED: POTA20TA5 PO (10:15)
[2017-06-23] MEDS ORDERED: POTA10SO12 PO (10:02)
== END 2017-06-22 13:26 | disposition home or self-care (01) ==
LOC: PHED 17:08 → PHEDA 20:57 → PH3B 21:53 → INTOOBSV 06-20 11:59 → OBSVTOIN 06-20 11:59
PROVIDERS: ADMIT Hospitalist; ATTEND Hospitalist
DX: C50.919 Malignant neoplasm of unspecified site of unspecified female breast (principal); I11.0 Hypertensive heart disease with heart failure; I50.23 Acute on chronic systolic (congestive) heart failure; R09.02 Hypoxemia; I42.0 Dilated cardiomyopathy; E78.2 Mixed hyperlipidemia; R00.0 Tachycardia, unspecified; I44.7 Left bundle-branch block, unspecified; R94.31 Abnormal electrocardiogram [ECG] [EKG]; F41.9 Anxiety disorder, unspecified; F32.9 Major depressive disorder, single episode, unspecified; Z85.820 Personal history of malignant melanoma of skin; Z79.899 Other long term (current) drug therapy
CPT/HCPCS: 71045; 71046; 71275; 80048; 83605; 83880; 84443; 84484; 85025; 85610; 85730; 87040; 87804; 93005; 93306; 94618; 96372; 96374; 99285; G0378; J1644; J1940; J2405; J7030; Q9967

== ENCOUNTER 2017-10-30 07:02 | Inpatient (IN) ==
--- NOTE | 2017-10-30 08:02 | XR ---
EXAM DATE: 10/30/2017 7:57 AM EDT AGE/SEX: 62 years / Female INDICATIONS: Short of breath. CLINICAL DATA: This is the patient's initial encounter. Patient reports that signs and symptoms have been present for 3 weeks and indicates a pain score of 0/10. MEDICAL/SURGICAL HISTORY: Carcinoma, breast. Congestive heart failure. Hypercholesterolemia. GERD. Chemotherapy. Radiation therapy. Hypertension. . Right lumpectomy. Uterine ablation. COMPARISON: [facility], CHEST PA & LAT, 06/20/2017. . FINDINGS: Interval removal of left-sided [id number]. Small bilateral pleural effusions with associated airsp ty disease in the lower lung zones and mild interstitial prominence. Cardiomediastinal contours are stable. Redemonstration of surgical clips in the right axilla as well as in ill-defined calcified sof t tissue mass. Osseous structures are intact. CONCLUSION: 1. Pulmonary edema pattern with small bilateral pleural effusions. Electronically signed by: Khang Brito MD 10/30/2017 8:01 AM EDT
--- NOTE | 2017-10-30 08:08 | ED ---
HPI General Chief complaint: Respiratory Symptoms Stated complaint: SOB this am History of Present Illness HPI narrative: Patient is a 62-year-old female with a history of breast cancer chemotherapy now stopped but radiation continuing now, presents emergency department for evaluation of shortness of breath for the past 3 weeks, she is [facility]. 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 She states that she is told her radiation physician about this but most they have done is just listen to her lungs. They have increased her metoprolol and Lasix but she continues to have shortness of breath. No fevers no cough no congestion. Endorses significant orthopnea. States symptoms have been gradually worsening, worsens when she lies flat, associated signs symptoms in context as above. Related Data Home Medications Medication Instructions Recorded Confirmed alprazolam 0.5 mg PO TID PRN 10/30/17 10/30/17 losartan 12.5 mg PO DAILY 10/30/17 10/30/17 metoclopramide HCl [Reglan] 5 mg PO QID MDD PRN 10/30/17 10/30/17 metoprolol succinate 50 mg PO BID 10/30/17 10/30/17 valacyclovir 1,000 mg PO DAILY PRN 10/30/17 10/30/17 Previous Rx's Medication Instructions Recorded spironolactone [Aldactone] 25 mg PO DAILY #30 tab 11/01/17 torsemide 10 mg PO BID #60 tab 11/01/17 Allergies Allergy/AdvReac Type Severity Reaction Status Date / Time naproxen AdvReac Intermediate NAUSEA Verified 10/30/17 07:29 Review of Systems ROS: all other systems reviewed are negative [facility] Medical History Medical History Abnormal uterine bleeding (Acute) Anxiety (Acute) Breast cancer (Acute) CHF (congestive heart failure) (Acute) Depression (Acute) Elevated cholesterol (Acute) GERD (gastroesophageal reflux disease) (Acute) History of chemotherapy (Acute) Hypertension (Acute) Panic attack (Acute) Social History Social History Substance History: No History of Abuse Second Hand Smoke Exposure: No Smoking Status: Never smoker How Often Do You Have a Drink Containing Alcohol: Monthly or less Recent Travel in USA within the Last 8 Weeks: No Recent Out of Country Travel within the Last 8 Weeks: No Immunization History Tetanus Immunization: Unsure Hx Influenza Vaccine This Season: No Exam Narrative Exam Narrative: GENERAL: Well-developed thin female in no obvious distress. SKIN: Focused skin assessment warm/dry. HEAD: Atraumatic. Normocephalic. EYES: Pupils equal and round. No scleral icterus. No injection or drainage. ENT: No nasal bleeding or discharge. Mucous membranes pink and moist. NECK: Trachea midline. No JVD. CARDIOVASCULAR: Regular rate and rhythm. No murmur appreciated. RESPIRATORY: No accessory muscle use. Bibasilar Rales, no increased work of breathing.. Breath sounds equal bilaterally. GASTROINTESTINAL: Abdomen soft, non-tender, nondistended. Hepatic and splenic margins not palpable. MUSCULOSKELETAL: No obvious deformities. No clubbing. No cyanosis. No edema. NEUROLOGICAL: Awake and alert. No obvious cranial nerve deficits. Motor grossly within normal limits. Normal speech. PSYCHIATRIC: Appropriate mood and affect; insight and judgment normal. Course Initial Documented Vital Signs Temperature 97 F L 10/30/17 07:24 Pulse Rate 92 H 10/30/17 07:24 Respiratory Rate 16 10/30/17 07:24 Blood Pressure 133/97 H 10/30/17 07:24 Pulse Oximetry 97 10/30/17 07:24 Last Documented Vital Signs Temperature 98.0 F 11/01/17 08:00 Pulse Rate 94 H 11/01/17 08:00 Respiratory Rate 22 11/01/17 08:00 Blood Pressure 108/66 11/01/17 08:00 Pulse Oximetry 95 11/01/17 08:00 Medical Decision Making [facility] Narrative Medical decision making narrative: Patient is a 62-year-old female presents emergency department for evaluation of shortness of breath. She has had a transient hypoxic episode on the low 90s on 2 L nasal cannula. Chest x-ray does show pleural effusions and some pulmonary edema, she was taken for CT PE protocol which was negative for PE but did show fairly large pleural effusion on the right side as well as a moderate pleural effusion the left side, she was given 40 mg of Lasix has begun to diurese quite well. Her labs are otherwise reassuring. Patient was discussed with Dr. Alcantara for admission for CHF exacerbation with pleural effusions. Unclear if the pleural effusions are from CHF or possibly malignant effusions. May require IR intervention. The time being she is hemodynamically stable for the floor. Medical Screen Exam Complete: Yes Emergency Medical Condition: Yes Lab Data Result diagrams: 10/30/17 08:45 10/30/17 08:45 Lab Results 10/30/17 10/30/17 10/30/17 Range/Units 08:45 08:45 08:45 CBC w Diff Auto diff final WBC 6.6 (4.0-11.0) th/mm3 RBC 4.49 (4.00-5.30) mil/mm3 Hgb 14.5 (11.6-15.3) gm/dL Hct 43.2 (35.0-46.0) % MCV 96.3 (80.0-100.0) fL MCH 32.4 (27.0-34.0) pg MCHC 33.7 (32.0-36.0) % RDW 18.0 H (11.6-17.2) % Plt Count 230 (150-450) th/mm3 MPV 8.0 (7.0-11.0) fL Neut % (Auto) 77.9 H (16.0-70.0) % Lymph % (Auto) 11.9 (9.0-44.0) % [place] % (Auto) 9.0 H (0.0-8.0) % Eos % (Auto) 0.5 (0.0-4.0) % Baso % (Auto) 0.7 (0.0-2.0) % Neut # (Auto) 5.2 (1.8-7.7) th/mm3 Lymph # (Auto) 0.8 L (1.0-4.8) th/mm3 [place] # (Auto) 0.6 (0.0-0.9) th/mm3 Eos # (Auto) 0.0 (0.0-0.4) th/mm3 Baso # (Auto) 0.0 (0.0-0.2) th/mm3 WBC Differential . Differential Comment . PT 11.4 (9.8-11.6) sec INR 1.1 Ratio APTT 22.4 L (24.3-30.1) sec Sodium 142 (136-145) meq/L Potassium 4.3 (3.5-5.1) meq/L Chloride 108 H (98-107) meq/L Carbon Dioxide 25.9 (21.0-32.0) meq/L Anion Gap 8 (5-15) meq/L BUN 22 H (7-18) mg/dL Creatinine 1.00 (0.50-1.00) mg/dL Estimated GFR 56 L (>89) mL/min Random Glucose 111 H (74-106) mg/dL Calcium 8.9 (8.5-10.1) mg/dL Total Bilirubin 0.7 (0.2-1.0) mg/dL AST 45 H (15-37) U/L ALT 97 H (10-53) U/L Alkaline Phosphatase 105 (45-117) U/L Troponin I 0.02 (0.02-0.05) ng/mL B-Natriuretic Peptide (0-100) pg/mL Total Protein 6.9 (6.4-8.2) g/dL Albumin 3.5 (3.4-5.0) g/dL Pleural pH Pleural RBC (0-0) /mm3 Pleural Nuc Cells (0-10) /mm3 Pleural Neutrophils % Pleural Lymphocytes % Pleural Monocytes % Pleural Histocytes % Pleural Mesothelial % Pleural Total Protein gm/dL Pleural LDH U/L Pleural Glucose mg/dL 10/30/17 10/31/17 10/31/17 Range/Units 08:45 08:20 08:20 CBC w Diff WBC (4.0-11.0) th/mm3 RBC (4.00-5.30) mil/mm3 Hgb (11.6-15.3) gm/dL Hct (35.0-46.0) % MCV (80.0-100.0) fL MCH (27.0-34.0) pg MCHC (32.0-36.0) % RDW (11.6-17.2) % Plt Count (150-450) th/mm3 MPV (7.0-11.0) fL Neut % (Auto) (16.0-70.0) % Lymph % (Auto) (9.0-44.0) % [place] % (Auto) (0.0-8.0) % Eos % (Auto) (0.0-4.0) % Baso % (Auto) (0.0-2.0) % Neut # (Auto) (1.8-7.7) th/mm3 Lymph # (Auto) (1.0-4.8) th/mm3 [place] # (Auto) (0.0-0.9) th/mm3 Eos # (Auto) (0.0-0.4) th/mm3 Baso # (Auto) (0.0-0.2) th/mm3 WBC Differential Differential Comment PT (9.8-11.6) sec INR Ratio APTT (24.3-30.1) sec Sodium (136-145) meq/L Potassium (3.5-5.1) meq/L Chloride (98-107) meq/L Carbon Dioxide (21.0-32.0) meq/L Anion Gap (5-15) meq/L BUN (7-18) mg/dL Creatinine (0.50-1.00) mg/dL Estimated GFR (>89) mL/min Random Glucose (74-106) mg/dL Calcium (8.5-10.1) mg/dL Total Bilirubin (0.2-1.0) mg/dL AST (15-37) U/L ALT (10-53) U/L Alkaline Phosphatase (45-117) U/L Troponin I (0.02-0.05) ng/mL B-Natriuretic Peptide 2476 H (0-100) pg/mL Total Protein (6.4-8.2) g/dL Albumin (3.4-5.0) g/dL Pleural pH 8.0 Pleural RBC 113 H (0-0) /mm3 Pleural Nuc Cells 171 H (0-10) /mm3 Pleural Neutrophils 37 % Pleural Lymphocytes 13 % Pleural Monocytes 11 % Pleural Histocytes 36 % Pleural Mesothelial 3 % Pleural Total Protein 1.9 gm/dL Pleural LDH 73 U/L Pleural Glucose 100 mg/dL Imaging Data Radiologist's impression: Chest CTA 10/30/17 07:34 CONCLUSION: 1. Large bilateral effusions, right greater than left. 2. No definite evidence for pulmonary embolism. Chest X-Ray 10/30/17 07:34 CONCLUSION: 1. Pulmonary edema pattern with small bilateral pleural effusions. Chest X-Ray 10/31/17 00:00 CONCLUSION: 1. No significant pneumothorax following right-sided thoracentesis with near interval resolution of right pleural effusion. 2. Persistent pulmonary vascular congestion pattern with small left pleural effusion and associated left lower lobe airspace disease. Thoracentesis Ultrasound 10/31/17 00:00 CONCLUSION: 1. Successful ultrasound-guided right thoracentesis. Discharge Plan Discharge Disposition Patient Disposition: 30 Still Patient Discharge Condition Condition: Fair Discharge Order Discharge Orders: Discharge Order (Routine); Ordered 11/01/17 Ordered By: Lacey Alcantara Discharge Details Anticipated Discharge Date: 11/01/17 Diagnosis: Pleural effusion, Hypoxia, CHF (congestive heart failure) Physicians Team ED Provider: Dino Grimaldo Primary Care Provider: Tanya Lancaster Attending Provider: Lacey Alcantara Status ED Status: Left Department Discharge Information Discharge Date/Time: 10/30/17 12:20
[2017-10-30 08:57] LABS: Baso % (Auto) 0.7 % (0.0-2.0); Eos % (Auto) 0.5 % (0.0-4.0); Hematocrit 43.2 % (35.0-46.0); Hemoglobin 14.5 gm/dL (11.6-15.3); Lymph # (Auto) 0.8 th/mm3 (1.0-4.8); Lymph % (Auto) 11.9 % (9.0-44.0); Mean Corpuscular HGB Conc 33.7 % (32.0-36.0); Mean Corpuscular Hemoglobin 32.4 pg (27.0-34.0); Mean Corpuscular Volume 96.3 fL (80.0-100.0); Mono # (Auto) 0.6 th/mm3 (0.0-0.9); Neut # (Auto) 5.2 th/mm3 (1.8-7.7); Neut % (Auto) 77.9 % (16.0-70.0); Platelet Count 230 th/mm3 (150-450); Red Blood Count 4.49 mil/mm3 (4.00-5.30); White Blood Count 6.6 th/mm3 (4.0-11.0)
[2017-10-30 09:09] LABS: Chloride 108 meq/L (98-107); Potassium 4.3 meq/L (3.5-5.1); Sodium 142 meq/L (136-145)
[2017-10-30 09:12] LABS: Calcium 8.9 mg/dL (8.5-10.1)
[2017-10-30 09:13] LABS: Albumin 3.5 g/dL (3.4-5.0); Anion Gap 8 meq/L (5-15); Blood Urea Nitrogen 22 mg/dL (7-18); Carbon Dioxide 25.9 meq/L (21.0-32.0); Glucose,Random 111 mg/dL (74-106)
[2017-10-30 09:16] LABS: Alanine Aminotransferase 97 U/L (10-53); Aspartate Aminotransferase 45 U/L (15-37); Glomerular Filtration Rate 56 mL/min (>89)
[2017-10-30 09:17] LABS: Total Protein 6.9 g/dL (6.4-8.2)
[2017-10-30 09:19] LABS: Alkaline Phosphatase 105 U/L (45-117)
[2017-10-30 09:21] LABS: Troponin I 0.02 ng/mL (0.02-0.05)
[2017-10-30 09:51] LABS: Activated Partial Thrombo Time 22.4 sec (24.3-30.1); INR 1.1 Ratio; Prothrombin Time 11.4 sec (9.8-11.6)
--- NOTE | 2017-10-30 10:35 | CT ---
EXAM DATE: 10/30/2017 10:25 AM EDT AGE/SEX: 62 years / Female INDICATIONS: Short of breath on exertion. CLINICAL DATA: This is the patient's initial encounter. Patient reports that signs and symptoms have been present for 3 days and indicates a pain score of 0/10. MEDICAL/SURGICAL HISTORY: Carcinoma, breast. Gastroesophageal reflux disease. Congestive heart fa ilure. Hypertension. None. RADIATION DOSE: 13.40 CTDI (mGy) COMPARISON: [facility], CHEST 1V SINGLE AP, 10/30/2017. [facility], CT PULMONARY ANGIOGRAM, 06/19/2017. . TECHNIQUE: Volumetric scanning was performed using a multi-row detector CT scanner during bolus infu richard of 65 ml Omnipaque 350 (iohexol) nonionic water-soluble contrast as a single exam dose. The pedro a was post processed with a variety of visualization algorithms including full volume maximum intensi ty projection and sliding thin slab reformation. Using automated exposure control and adjustment of the mA and/or kV according to patient size, radiation dose was kept as low as reasonably achievable t o obtain optimal diagnostic quality images. DICOM format image data is available electronically for review and comparison. FINDINGS: There is a large right pleural effusion and moderate left effusion identified. There is no evidence f or pulmonary embolism. Review of lung windows demonstrate passive atelectasis at the lung bases, a no ncalcified nodule in the left lower lobe measuring 3.4 mm on image 77, and a small nodule in the left lung apex measuring 8.2 mm. This actually looks smaller from June 2017 CT examination when it measu red 1.1 cm in transverse dimension. There are cysts in the liver. CONCLUSION: 1. Large bilateral effusions, right greater than left. 2. No definite evidence for pulmonary embolism. Electronically signed by: Seth Kim MD 10/30/2017 10:34 AM EDT
[2017-10-30] MEDS ORDERED: Bisacodyl 10 MG Supp RECTAL PRN (10:56)
[2017-10-30] MEDS ORDERED: Acetaminophen 325 MG Tablet PO PRN (10:56)
[2017-10-30] MEDS ORDERED: Enoxaparin Inj 40 MG/0.4 ML Syringe SQ SCH (12:00)
--- NOTE | 2017-10-30 16:17 | ECG ---
Date Performed: 10/30/2017 Time Performed: 07:45:09 PTAGE: 62 years EKG: Sinus rhythm LEFT BUNDLE BRANCH BLOCK Since the previous tracing, no significant change noted ABNORMAL ECG PREVIOUS TRACING : 06/19/2017 17.58 DOCTOR: Gagandeep Doss Interpretating Date/Time 10/30/2017 16:14:48
--- NOTE | 2017-10-30 18:09 | P.HP ---
History of Present Illness Service: Hospitalist Primary Care Physician: Tanya Lancaster DO Chief Complaint: Shortness of breath History of Present Illness: Ms. Patricio is a pleasant 62-year-old female with a history of triple negative right-sided breast cancer status post chemotherapy as well as lumpectomy and radiation therapy who presents to the emergency department due to worsening shortness of breath. Patient follows up with [facility]. Prior to starting her chemotherapy, her ejection fraction was in the normal range. However due to anthracycline chemotherapy, her ejection fraction in September was 20-30%. In the recent days she has been difficulty walking due to dyspnea. She is not able to walk even short distance without getting short of breath. Her blood pressure has also been on the lower and 100 - 110 systolic. 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 She follows up with Dr. Lewis locally as well for cardiology. Patient denies any chest pain, fever or chills. No cough or abdominal pain. No changes in bowel or bladder habits. 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 Family history: Mother had breast cancer. - Diagnosis (1) Breast cancer (2) Pleural effusion (3) CHF (congestive heart failure) Inpatient Certification: I certify that the inpatient services were ordered in accordance with Medicare regulations governing the order. This includes certification that hospital inpatient services are reasonable and necessary and in the case of services not specified as inpatient-only under 42 CFR 419.22(n), that they are appropriately provided as inpatient services in accordance to with the 2-midnight benchmark under 43 CFR 412.3(e) Estimated Total Length of Stay (Days): 3 Plans for Post Hospital Care: Home Review of Systems All other systems reviewed negative except as stated in HPI PMFSH - History History Provided By: Patient, Significant Other - Medical History Medical History: Medical History (Last Updated 10/30/17 @ 07:35 by Jay Alicea RN) Abnormal uterine bleeding Anxiety Breast cancer CHF (congestive heart failure) Depression Elevated cholesterol GERD (gastroesophageal reflux disease) History of chemotherapy Hypertension Panic attack - Tobacco History Second Hand Smoke Exposure: No Tobacco Use In Past 30 Days: No Smoking Status: Never smoker - Alcohol History How Often Do You Have a Drink Containing Alcohol: Monthly or less - Substance Use History Substance History: No History of Abuse - Travel History Recent Travel in the [place] Within the Last 8 Weeks: No Recent Travel Out of the Country Within the Last 8 Weeks: No - Immunization History Tetanus Immunization: Unsure Hx Influenza Vaccine This Season: No Medications and Allergies Active Medications: Active Medications Acetaminophen (Tylenol) 650 mg PO Q4H PRN PRN Reason: Headache, fever, pain 1-5 Al Hydroxide/Mg Hydroxide (Milk Of Magnesia Liq) 30 ml PO Q12H PRN PRN Reason: Mild Constipation Alprazolam (Xanax) 0.5 mg PO TID PRN PRN Reason: Nausea Bisacodyl (Dulcolax Supp) 10 mg RECTAL DAILY PRN PRN Reason: SEVERE CONSITIPATION Enoxaparin Sodium (Lovenox Inj) 40 mg SQ Q24H [facility] Last Admin: 10/30/17 11:33 Dose: 40 mg Lactulose (Lactulose Liq) 30 ml PO DAILY PRN PRN Reason: SEVERE CONSITIPATION Metoprolol Succinate (Toprol Xl) 50 mg PO BID [facility] Ondansetron HCl (Zofran Inj) 4 mg IV.PUSH Q6H PRN PRN Reason: NAUSEA OR VOMITING Sennosides (Senokot) 17.2 mg PO Q12H PRN PRN Reason: Moderate Constipation Sodium Chloride (Ns Flush) 2 ml IV.FLUSH UNSCH PRN PRN Reason: FLUSH AFTER USING IV ACCESS Last Admin: 10/30/17 09:13 Dose: 2 ml Allergies Allergy/AdvReac Type Severity Reaction Status Date / Time naproxen AdvReac Intermediate NAUSEA Verified 10/30/17 07:29 Home Medications Medication Instructions Recorded Confirmed Type alprazolam 0.5 mg PO TID PRN 10/30/17 10/30/17 History furosemide [Lasix] 20 mg PO DAILY 10/30/17 10/30/17 History losartan 12.5 mg PO DAILY 10/30/17 10/30/17 History metoclopramide HCl [Reglan] 5 mg PO QID MDD PRN 10/30/17 10/30/17 History metoprolol succinate 50 mg PO BID 10/30/17 10/30/17 History potassium chloride 10 meq PO DAILY 10/30/17 10/30/17 History valacyclovir 1,000 mg PO DAILY PRN 10/30/17 10/30/17 History Exam Vital signs: Vital Signs 10/30/17 07:24 10/30/17 07:49 10/30/17 08:00 Temperature 97 F L Pulse Rate 92 H 90 Respiratory Rate 16 Blood Pressure 133/97 H Pulse Oximetry 97 99 95 10/30/17 11:04 10/30/17 11:40 10/30/17 13:46 Temperature 98.6 F Pulse Rate 90 86 99 H Respiratory Rate 18 18 19 Blood Pressure 136/96 H 125/98 H 124/82 Pulse Oximetry 96 98 10/30/17 15:32 10/30/17 16:00 Temperature 97.8 F Pulse Rate 94 H Respiratory Rate 20 Blood Pressure 125/87 Pulse Oximetry 94 L 95 Intake & Output 10/29/17 10/30/17 10/30/17 18:59 06:59 18:59 Intake Total 240 / 240 Output Total 1100 / 1100 Balance -860 / -860 Weight 64 kg Intake: Oral 240 / 240 Output: Urine 1100 / 1100 Other: Date of Last Bowel Movement 10/29/17 Weight On Admission 63.8 kg Narrative: GENERAL: This is a well-nourished, well-developed patient, in no apparent distress. SKIN: No rashes, ecchymoses or lesions. Warm and dry. HEAD: Atraumatic. Normocephalic. No temporal or scalp tenderness. EYES: Pupils equal round and reactive. No injection or drainage. ENT: Nose without bleeding, purulent drainage or septal hematoma. Airway patent. NECK: Trachea midline. No lymphadenopathy. Supple, nontender, no meningeal signs. CARDIOVASCULAR: Regular rate and rhythm without murmurs, gallops, or rubs. No JVD. RESPIRATORY: Moderate air entry. No wheezing noted. Diminished breath sounds on the right side. GASTROINTESTINAL: Abdomen soft, non-tender, nondistended. No guarding. MUSCULOSKELETAL: Extremities without clubbing, cyanosis, or edema. NEUROLOGICAL: Awake and alert. Cranial nerves II through XII intact. No focal neurological deficits. Normal speech. Results - Labs CBC & Chem 7: 10/30/17 08:45 10/30/17 08:45 Labs: Laboratory Results - last 24 hr 10/30/17 10/30/17 10/30/17 08:45 08:45 08:45 CBC w Diff Auto diff final WBC 6.6 RBC 4.49 Hgb 14.5 Hct 43.2 MCV 96.3 MCH 32.4 MCHC 33.7 RDW 18.0 H Plt Count 230 MPV 8.0 Neut % (Auto) 77.9 H Lymph % (Auto) 11.9 [place] % (Auto) 9.0 H Eos % (Auto) 0.5 Baso % (Auto) 0.7 Neut # (Auto) 5.2 Lymph # (Auto) 0.8 L [place] # (Auto) 0.6 Eos # (Auto) 0.0 Baso # (Auto) 0.0 WBC Differential . Differential Comment . PT 11.4 INR 1.1 APTT 22.4 L Sodium 142 Potassium 4.3 Chloride 108 H Carbon Dioxide 25.9 Anion Gap 8 BUN 22 H Creatinine 1.00 Estimated GFR 56 L Random Glucose 111 H Calcium 8.9 Total Bilirubin 0.7 AST 45 H ALT 97 H Alkaline Phosphatase 105 Troponin I 0.02 B-Natriuretic Peptide Total Protein 6.9 Albumin 3.5 10/30/17 08:45 CBC w Diff WBC RBC Hgb Hct MCV MCH MCHC RDW Plt Count MPV Neut % (Auto) Lymph % (Auto) [place] % (Auto) Eos % (Auto) Baso % (Auto) Neut # (Auto) Lymph # (Auto) [place] # (Auto) Eos # (Auto) Baso # (Auto) WBC Differential Differential Comment PT INR APTT Sodium Potassium Chloride Carbon Dioxide Anion Gap BUN Creatinine Estimated GFR Random Glucose Calcium Total Bilirubin AST ALT Alkaline Phosphatase Troponin I B-Natriuretic Peptide 2476 H Total Protein Albumin - Imaging Impressions Chest CTA 10/30/17 07:34 CONCLUSION: 1. Large bilateral effusions, right greater than left. 2. No definite evidence for pulmonary embolism. Chest X-Ray 10/30/17 07:34 CONCLUSION: 1. Pulmonary edema pattern with small bilateral pleural effusions. Caprini VTE Risk Assessment Caprini VTE Risk Assessment: Moderate/High Risk (score >= 2) Caprini Risk Assessment Model: Point Value = 1 Point Value = 2 Point Value = 3 Point Value = 5 Age 41-60 Minor surgery BMI > 25 kg/m2 Swollen legs Varicose veins or History of unexplained or recurrent spontaneous Oral contraceptives or hormone replacement Sepsis (< 1 month) Serious lung disease, including pneumonia (< 1 month) Abnormal pulmonary function Acute myocardial infarction Congestive heart failure (< 1 month) History of inflammatory bowel disease Medical patient at bed rest Age 61-74 Arthroscopic surgery Major open surgery (> 45 min) Laparoscopic surgery (> 45 min) Malignancy Confined to bed (> 72 hours) Immobilizing plaster cast Central venous access Age >= 75 History of VTE Family history of VTE Factor V Leiden Prothrombin [id number] Lupus anticoagulant Anticardiolipin antibodies Elevated serum homocysteine Heparin-induced thrombocytopenia Other congenital or acquired thrombophilia Stroke (< 1 month) Elective arthroplasty Hip, pelvis, or leg fracture Acute spinal cord injury (< 1 month) Prophylaxis Regimen: Total Risk Factor Score Risk Level Prophylaxis Regimen 0-1 Low Early ambulation 2 Moderate Order ONE of the following: *Sequential Compression Device (SCD) *Heparin 5000 units SQ BID 3-4 Higher Order ONE of the following medications: *Heparin 5000 units SQ TID *Enoxaparin/Lovenox 40 mg SQ daily (WT < 150 kg, CrCl > 30 mL/min) *Enoxaparin/Lovenox 30 mg SQ daily (WT < 150 kg, CrCl > 10-29 mL/min) *Enoxaparin/Lovenox 30 mg SQ BID (WT < 150 kg, CrCl > 30 mL/min) AND/OR *Sequential Compression Device (SCD) 5 or more Highest Order ONE of the following medications: *Heparin 5000 units SQ TID (Preferred with Epidurals) *Enoxaparin/Lovenox 40 mg SQ daily (WT < 150 kg, CrCl > 30 mL/min) *Enoxaparin/Lovenox 30 mg SQ daily (WT < 150 kg, CrCl > 10-29 mL/min) *Enoxaparin/Lovenox 30 mg SQ BID (WT < 150 kg, CrCl > 30 mL/min) AND *Sequential Compression Device (SCD) Assessment and Plan - Assessment (1) Breast cancer Code(s): C50.919 - Malignant neoplasm of unspecified site of unspecified female breast Status: Acute (2) Pleural effusion Code(s): J90 - Pleural effusion, not elsewhere classified Status: Acute (3) CHF (congestive heart failure) Code(s): I50.9 - Heart failure, unspecified Status: Acute - Plan Ms. Patricio is a pleasant 62-year-old female with a history of triple negative breast cancer status post chemotherapy, lumpectomy and radiation therapy who presents to the ED on 10/30/2017 due to progressive dyspnea. Her last echo in September shows ejection fraction 20-25% which is likely due to anthracycline chemotherapy. Bilateral pleural effusion -Right side is more significant. Will order thoracentesis -Continue supplemental oxygen as needed to keep O2 saturation above 90%. Acute exacerbation of congestive heart failure systolic -At home patient takes losartan 12.5 mg p.o. daily, Lasix 20 mg p.o. daily, metoprolol succinate 50 mg p.o. twice daily -Due to low blood pressure, her medications are not titrated up. -However, I believe medication optimization is necessary for her heart failure symptoms. -I would like to consider continuing metoprolol succinate and increasing diuresis with torsemide p.o. and continue ARB. -Also we should consider spironolactone -I requested patient to convey my contact information to her ophthalmic lens inspector at [facility] so that it can discuss cardiac medications. -Patient received IV Lasix 40 mg once in the ED. -For now continue metoprolol succinate 50 mg p.o. twice daily. History of triple negative breast cancer -status post chemotherapy, lumpectomy, radiation therapy. Full code. Lovenox on hold.
[2017-10-30] MEDS: ALPRAZolam 0.5 MG Tablet PO PRN (18:21)
--- NOTE | 2017-10-31 08:39 | XR ---
EXAM DATE: 10/31/2017 8:35 AM EDT AGE/SEX: 62 years / Female INDICATIONS: Post right thoracentesis. CLINICAL DATA: This is the patient's subsequent encounter. Patient reports that signs and symptoms h ave been present for 2 days and indicates a pain score of 0/10. MEDICAL/SURGICAL HISTORY: . Carcinoma, breast. Congestive heart failure. Hypercholesterolemia. GERD. Chemotherapy. Radiation therapy. Hypertension. . Right lumpectomy. Uterine ablation . COMPARISON: [facility], CHEST 1V SINGLE AP, 10/30/2017. . FINDINGS: Near interval resolution of right-sided pleural effusion with persistent small left pleural effusion and associated left lower lobe airspace disease. No significant pneumothorax. Cardiomediastinal conto urs are stable. Remainder of the exam is unchanged. CONCLUSION: 1. No significant pneumothorax following right-sided thoracentesis with near interval resolution of right pleural effusion. 2. Persistent pulmonary vascular congestion pattern with small left pleural effusion and associated left lower lobe airspace disease. Electronically signed by: Khang Brito MD 10/31/2017 8:38 AM EDT
--- NOTE | 2017-10-31 09:15 | US ---
EXAM DATE: 10/31/2017 9:00 AM EDT AGE/SEX: 62 years / Female INDICATIONS: Right pleural effusion. CLINICAL DATA: This is the patient's initial encounter. Patient reports that signs and symptoms have been present for 2 days and indicates a pain score of 4/10. MEDICAL/SURGICAL HISTORY: Hypercholesterolemia. Gastroesophageal reflux disease. Congestive h eart failure. Anxiety. Depression. Chemotherapy. Hypertension. Breast cancer. . Right breast lumpec lorraine. Uterine ablation. COMPARISON: [facility], CHEST EXPIRATION ONLY, 10/31/2017. . FLUID: Total volume of 1300 cc of clear, yellow fluid was removed. Fluid was sent to lab for ordered studies. . . TECHNIQUE: Ultrasound guidance for thoracentesis. Thoracentesis. The risks, benefits, and alternatives to ultrasound guided thoracentesis were explained to the patien t in lay simple terms, including the risk of bleeding and infection. Written and verbal informed con sent was obtained. Appropriate area for right thoracentesis was marked under ultrasound guidance with the patient in the upright position. Overlying skin was prepped and draped in the usual sterile fashion and with local anesthetic, a dermatotomy was made with an 11 blade scalpel. A 6 Jordanian thoracentesis catheter was placed in the pleural space and fluid was removed. Catheter was then removed and a sterile dressing applied. There were no immediate complications. The patient tolerated the procedure well and the lef t the ultrasound suite in stable condition. Chest radiograph is to be obtained. FINDINGS: After obtaining consent, a right thoracentesis was performed with ultrasound guidance as described ab ove. The patient tolerated the procedure well without complications. CONCLUSION: 1. Successful ultrasound-guided right thoracentesis. Electronically signed by: Dino Alexander MD 10/31/2017 9:14 AM EDT
--- NOTE | 2017-10-31 09:27 | P.PN ---
Subjective Interval history: Follow-up for pleural effusion, cardiomyopathy in a patient with a history of breast cancer. Patient is currently doing well. Resting in bed. She underwent right-sided thoracentesis today. No fever or chills. Physical Exam Vital signs: Vital Signs 10/30/17 11:04 10/30/17 11:40 10/30/17 13:46 Temperature 98.6 F Pulse Rate 90 86 99 H Respiratory Rate 18 18 19 Blood Pressure 136/96 H 125/98 H 124/82 Pulse Oximetry 96 98 10/30/17 15:32 10/30/17 16:00 10/30/17 19:00 Temperature 97.8 F Pulse Rate 94 H Respiratory Rate 20 Blood Pressure 125/87 Pulse Oximetry 94 L 95 95 10/30/17 20:00 10/30/17 20:05 10/31/17 00:00 Temperature 97.7 F 98.4 F Pulse Rate 83 88 Respiratory Rate 16 16 Blood Pressure 103/66 102/61 Pulse Oximetry 97 95 96 Intake & Output 10/30/17 10/31/17 10/31/17 18:59 06:59 18:59 Intake Total 240 / 240 200 / 200 Output Total 1800 / 1800 Balance -1560 / -1560 200 / 200 Weight 64 kg 64 kg Intake: Oral 240 / 240 200 / 200 Output: Urine 1800 / 1800 Other: # Voids 2 Date of Last Bowel Movement 10/29/17 10/29/17 Weight On Admission 63.8 kg Narrative: GENERAL: Alert, oriented 3, NAD. SKIN: Warm and dry. HEAD: Normocephalic. EYES: No scleral icterus. No injection or drainage. NECK: Supple, trachea midline. No JVD or lymphadenopathy. CARDIOVASCULAR: Regular rate and rhythm without murmurs, gallops, or rubs. RESPIRATORY: Moderate air entry. Somewhat mildly diminished breath sounds on the right. No accessory muscle use. GASTROINTESTINAL: Abdomen soft, non-tender, nondistended. MUSCULOSKELETAL: No cyanosis, or edema. BACK: Nontender without obvious deformity. No CVA tenderness. Results - Labs CBC & Chem 7: 10/30/17 08:45 10/30/17 08:45 Laboratory Results - last 24 hr 10/30/17 10/30/17 08:45 08:45 PT 11.4 INR 1.1 APTT 22.4 L B-Natriuretic Peptide 2476 H - Imaging Impressions Chest CTA 10/30/17 07:34 CONCLUSION: 1. Large bilateral effusions, right greater than left. 2. No definite evidence for pulmonary embolism. Chest X-Ray 10/31/17 00:00 CONCLUSION: 1. No significant pneumothorax following right-sided thoracentesis with near interval resolution of right pleural effusion. 2. Persistent pulmonary vascular congestion pattern with small left pleural effusion and associated left lower lobe airspace disease. Thoracentesis Ultrasound 10/31/17 00:00 CONCLUSION: 1. Successful ultrasound-guided right thoracentesis. Assessment and Plan - Assessment (1) Breast cancer Code(s): C50.919 - Malignant neoplasm of unspecified site of unspecified female breast Status: Acute (2) Pleural effusion Code(s): J90 - Pleural effusion, not elsewhere classified Status: Acute (3) CHF (congestive heart failure) Code(s): I50.9 - Heart failure, unspecified Status: Acute - Plan Ms. Patricio is a pleasant 62-year-old female with a history of triple negative breast cancer status post chemotherapy, lumpectomy and radiation therapy who presents to the ED on 10/30/2017 due to progressive dyspnea. Her last echo in September shows ejection fraction 20-25% which is likely due to anthracycline chemotherapy. Bilateral pleural effusion -Right side is more significant. s/p right thoracentesis. -Continue supplemental oxygen as needed to keep O2 saturation above 90%. Acute exacerbation of congestive heart failure systolic -At home patient takes losartan 12.5 mg p.o. daily, Lasix 20 mg p.o. daily, metoprolol succinate 50 mg p.o. twice daily -Due to low blood pressure, her medications are not titrated up. -However, I believe medication optimization is necessary for her heart failure symptoms. -I would like to consider continuing metoprolol succinate and increasing diuresis with torsemide p.o. and continue ARB. -Also we should consider spironolactone -Waiting to hear from Avian Keeper from [facility]. Will discuss regarding optimizing meds for her. -For now continue metoprolol succinate 50 mg p.o. twice daily. History of triple negative breast cancer -status post chemotherapy, lumpectomy, radiation therapy. Full code. Lovenox on hold. Discharge plan: Probable discharge on 11/01/2017. We may need to do a O2 walk test in the morning.
[2017-10-31] MEDS: ALPRAZolam 0.5 MG Tablet PO PRN ×2 (10:50→14:49)
[2017-10-31 11:27] LABS: Lymphocytes,Pleural Fluid 13 %; Mesothelial,Pleural Fluid 3 %; Monocytes,Pleural Fluid 11 %; Neutrophils,Pleural Fluid 37 %; RBC,Pleural Fluid 113 /mm3 (0-0)
[2017-10-31 14:46] LABS: Total Protein,Pleural Fluid 1.9 gm/dL
[2017-11-01 08:36] VITALS: BP 108/66; PULSE 94; RESP 22; TEMP 98; O2SAT 95
--- NOTE | 2017-11-01 08:47 | P.DS ---
Date of admission: 10/30/17 10:46 Primary care physician: Tanya Lancaster DO Brief History from admission: Ms. Patricio is a pleasant 62-year-old female with a history of triple negative right-sided breast cancer status post chemotherapy as well as lumpectomy and radiation therapy who presents to the emergency department due to worsening shortness of breath. Patient follows up with [facility]. Prior to starting her chemotherapy, her ejection fraction was in the normal range. However due to anthracycline chemotherapy, her ejection fraction in September was 20-30%. In the recent days she has been difficulty walking due to dyspnea. She is not able to walk even short distance without getting short of breath. Her blood pressure has also been on the lower and 100 - 110 systolic. In addition to her oncologist she also has a cash posting representative at [facility]. She follows up with Dr. Lewis locally as well for cardiology. Patient denies any chest pain, fever or chills. No cough or abdominal pain. No changes in bowel or bladder habits. 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 Family history: Mother had breast cancer. DS: Diagnosis - Discharge Diagnosis (1) Breast cancer Status: Acute (2) Pleural effusion Status: Acute (3) CHF (congestive heart failure) Status: Acute DS: Medications - Discharge Medications Prescriptions: spironolactone [Aldactone] 25 mg PO DAILY #30 tab torsemide 10 mg PO BID #60 tab DS: Summary Hospital Course: Ms. Patricio is a pleasant 62-year-old female with a history of triple negative breast cancer status post chemotherapy, lumpectomy and radiation therapy who presents to the ED on 10/30/2017 due to progressive dyspnea. Her last echo in September shows ejection fraction 20-25% which is likely due to anthracycline chemotherapy. Bilateral pleural effusion -Right side is more significant. s/p right thoracentesis. -Continue supplemental oxygen as needed to keep O2 saturation above 90%. -Home O2 walk test ==> no need for home O2 Acute exacerbation of congestive heart failure systolic -At home patient takes losartan 12.5 mg p.o. daily, Lasix 20 mg p.o. daily, metoprolol succinate 50 mg p.o. twice daily -I have discussed with patient's cash posting representative at [facility]. Based on my discussion with cash posting representative, will switch patient's Lasix to torsemide 10 mg twice a day and also start Spironolactone 25 mg daily. Patient will follow up with her cash posting representative with regards to future need for CRTD device. Advised patient not to continue supplemental potassium. However I also advised patient to check her BMP in a week or 2. She has an appointment with her physician on 11/20/2017. History of triple negative breast cancer -status post chemotherapy, lumpectomy, radiation therapy. - Time Spent with Patient Total time spent providing and/or coordinating discharge services: Greater than 30 minutes - Quality: VTE Deep Vein Thrombosis/Pulmonary Embolism Present on Admission: No Exam Vital signs: Vital Signs 10/31/17 09:00 10/31/17 09:15 10/31/17 12:00 Temperature 96.1 F L 97.2 F L 98.6 F Pulse Rate 96 H 91 H 98 H Respiratory Rate 20 20 20 Blood Pressure 117/76 119/73 111/72 Pulse Oximetry 96 98 96 Pulse Oximetry [Exertion on Room Air] Pulse Oximetry [Resting on Room Air] 10/31/17 16:00 10/31/17 19:55 10/31/17 20:00 Temperature 99 F 97.2 F L Pulse Rate 96 H 97 H Respiratory Rate 20 16 Blood Pressure 120/79 121/86 Pulse Oximetry 97 92 L 94 L Pulse Oximetry [Exertion on Room Air] 92 L Pulse Oximetry [Resting on Room Air] 95 11/01/17 00:00 11/01/17 08:00 Temperature 96.5 F L 98.0 F Pulse Rate 83 94 H Respiratory Rate 16 22 Blood Pressure 100/66 108/66 Pulse Oximetry 91 L 95 Pulse Oximetry [Exertion on Room Air] Pulse Oximetry [Resting on Room Air] Intake & Output 10/31/17 11/01/17 11/01/17 18:59 06:59 18:59 Intake Total 750 / 750 680 / 680 Output Total 3000 / 3000 Balance 750 / 750 -2320 / -2320 Intake: Oral 750 / 750 680 / 680 Output: Urine 3000 / 3000 Other: # Voids 2 Date of Last Bowel Movement 11/01/17 # Bowel Movements 1 Narrative: GENERAL: Alert, oriented 3, NAD. SKIN: Warm and dry. HEAD: Normocephalic. EYES: No scleral icterus. No injection or drainage. NECK: Supple, trachea midline. No JVD or lymphadenopathy. CARDIOVASCULAR: Regular rate and rhythm without murmurs, gallops, or rubs. RESPIRATORY: Breath sounds equal bilaterally. No accessory muscle use. GASTROINTESTINAL: Abdomen soft, non-tender, nondistended. MUSCULOSKELETAL: No cyanosis, or edema. BACK: Nontender without obvious deformity. No CVA tenderness. Results Procedures completed during hospitalization: Right-sided thoracentesis Labs on day of discharge: Labs from last 24 hours 10/31/17 10/31/17 08:20 08:20 Pleural pH 8.0 Pleural RBC 113 H Pleural Nuc Cells 171 H Pleural Neutrophils 37 Pleural Lymphocytes 13 Pleural Monocytes 11 Pleural Histocytes 36 Pleural Mesothelial 3 Pleural Total Protein 1.9 Pleural LDH 73 Pleural Glucose 100 - Impressions ITS Impressions Chest CTA 10/30/17 07:34 CONCLUSION: 1. Large bilateral effusions, right greater than left. 2. No definite evidence for pulmonary embolism. Chest X-Ray 10/31/17 00:00 CONCLUSION: 1. No significant pneumothorax following right-sided thoracentesis with near interval resolution of right pleural effusion. 2. Persistent pulmonary vascular congestion pattern with small left pleural effusion and associated left lower lobe airspace disease. Thoracentesis Ultrasound 10/31/17 00:00 CONCLUSION: 1. Successful ultrasound-guided right thoracentesis. Discharge Plan - Discharge Disposition Patient Disposition: 01 Discharge Home - Discharge Condition Condition: Fair - Discharge Order Discharge Orders: Discharge Order (Routine); Ordered 11/01/17 Ordered By: Lacey Alcantara - Discharge Details Anticipated Discharge Date: 11/01/17 - Physicians Team Primary Care Provider: Tanya Lancaster Attending Provider: Lacey Alcantara
[2017-11-01] MEDS ORDERED: Spironolactone 25 MG Tablet PO SCH (09:00)
== END 2017-11-01 10:46 | disposition home or self-care (01) ==
LOC: PHED 07:02 → PHEDA 10:46 → PH3 11:52
PROVIDERS: ADMIT Hospitalist; ATTEND Hospitalist